=== PATIENT | female | born 1970 | race Caucasian/White ===

== ENCOUNTER → 2017-05-27 | Outpatient (CLI) | payer OTHER | END | disposition home or self-care (01) | LOC: SURG 09:54 | PROVIDERS: ATTEND Anesthesiology | DX: M47.816 Spondylosis without myelopathy or radiculopathy, lumbar region (principal); M51.36 Other intervertebral disc degeneration, lumbar region; I10 Essential (primary) hypertension; Z90.710 Acquired absence of both cervix and uterus | CPT/HCPCS: 99204 ==

== ENCOUNTER → 2017-07-29 | Outpatient (CLI) | payer OTHER | END | disposition home or self-care (01) | LOC: SURG 10:14 | PROVIDERS: ATTEND Anesthesiology | DX: M54.16 Radiculopathy, lumbar region (principal); M51.36 Other intervertebral disc degeneration, lumbar region; M47.816 Spondylosis without myelopathy or radiculopathy, lumbar region; Z90.710 Acquired absence of both cervix and uterus | CPT/HCPCS: 99214 ==

== ENCOUNTER → 2017-09-23 | Outpatient (CLI) | payer OTHER ==
[~2017-09-23] MED LIST: BUPIVACAINE MPF 0.25% 10 ML VIAL. ONE; LIDOCAINE 1% PF 30 ML VIAL. ONE
== END | disposition home or self-care (01) ==
LOC: SURG 09:43
PROVIDERS: ATTEND Anesthesiology
DX: M47.816 Spondylosis without myelopathy or radiculopathy, lumbar region (principal); M51.16 Intervertebral disc disorders with radiculopathy, lumbar region; Z72.89 Other problems related to lifestyle; Z90.710 Acquired absence of both cervix and uterus; Z88.5 Allergy status to narcotic agent; Z88.4 Allergy status to anesthetic agent
CPT/HCPCS: 64493; 64494; J2001; J3490

== ENCOUNTER → 2017-10-28 | Outpatient (CLI) | payer OTHER | END | disposition home or self-care (01) | LOC: SURG 09:37 | PROVIDERS: ATTEND Anesthesiology | DX: M47.816 Spondylosis without myelopathy or radiculopathy, lumbar region (principal); M54.16 Radiculopathy, lumbar region; M51.36 Other intervertebral disc degeneration, lumbar region; G89.4 Chronic pain syndrome; I10 Essential (primary) hypertension; Z88.5 Allergy status to narcotic agent; Z88.4 Allergy status to anesthetic agent; Z90.710 Acquired absence of both cervix and uterus | CPT/HCPCS: 99214 ==

== ENCOUNTER → 2017-11-25 | Day surgery (SDC) | payer OTHER ==
[~2017-11-25] MED LIST changes: -BUPIVACAINE MPF 0.25% 10 ML VIAL. ONE; +BUPIVACAINE MPF 0.5% 30 ML VIAL. ONE; +CETI10TA22 PO; +DEXAMETHASONE SOD PHOS 4 MG/ML VIAL ONE; +ESTR0.5T PO; -LIDOCAINE 1% PF 30 ML VIAL. ONE; +LIDOCAINE 2% MPF 200 MG/10 ML AMPUL. INJ ONE; +MIDAZOLAM HCL PF 2 MG/2 ML VIAL. ONE; +TIZA4TAB PO; +TRAM50TA PO; +VENL75CA PO
[2017-11-25 10:05] VITALS: BP 117/73
== END | disposition home or self-care (01) ==
LOC: SURG 08:16
PROVIDERS: ATTEND Anesthesiology
DX: M47.816 Spondylosis without myelopathy or radiculopathy, lumbar region (principal); Z72.89 Other problems related to lifestyle; Z90.710 Acquired absence of both cervix and uterus; Z98.890 Other specified postprocedural states; Z79.899 Other long term (current) drug therapy; Z88.5 Allergy status to narcotic agent; Z88.8 Allergy status to other drugs, medicaments and biological substances
CPT/HCPCS: 64635; 64636; J1100; J2250; J3010; J3490

== ENCOUNTER → 2017-12-16 | Day surgery (SDC) | payer OTHER ==
[~2017-12-16] MED LIST changes: +BUPIVACAINE MPF 0.25% 30 ML VIAL. ONE; -BUPIVACAINE MPF 0.5% 30 ML VIAL. ONE; +IV RINGERS SOLUTION,LACTATED 1,000 ML IV SCH; +LIDOCAINE 1% PF 30 ML VIAL. ONE; -LIDOCAINE 2% MPF 200 MG/10 ML AMPUL. INJ ONE
[2017-12-16 09:40] VITALS: BP 117/61
== END | disposition home or self-care (01) ==
LOC: SURG 07:22
PROVIDERS: ATTEND Anesthesiology
DX: M47.816 Spondylosis without myelopathy or radiculopathy, lumbar region (principal); Z72.89 Other problems related to lifestyle; Z90.710 Acquired absence of both cervix and uterus; Z88.5 Allergy status to narcotic agent; Z88.8 Allergy status to other drugs, medicaments and biological substances; Z79.899 Other long term (current) drug therapy; Z98.890 Other specified postprocedural states
CPT/HCPCS: 64635; 64636; J1100; J2001; J2250; J3010; J3490; J7120

== ENCOUNTER 2019-12-15 22:17 | Emergency (ER) | payer BC, OTHER ==
[~2019-12-15] VITALS: Ht 154.9 cm; Wt 83.4 kg
[~2019-12-15 22:17] MED LIST changes: -BUPIVACAINE MPF 0.25% 30 ML VIAL. ONE; -CETI10TA22 PO; +CETI10TA74 PO; -DEXAMETHASONE SOD PHOS 4 MG/ML VIAL ONE; -IV RINGERS SOLUTION,LACTATED 1,000 ML IV SCH; -LIDOCAINE 1% PF 30 ML VIAL. ONE; -MIDAZOLAM HCL PF 2 MG/2 ML VIAL. ONE; -TIZA4TAB PO; +TIZA4TAB2 PO
[2019-12-15] MEDS: DEXAMETHASONE 4 MG TABLET PO ONE (22:45)
[2019-12-15] MEDS ORDERED: ALBU2.5V8 IH (23:04)
--- NOTE | 2019-12-15 23:04 | PHYS DOC ---
Past History Past Medical History: Other Additional Past Medical Histor: chronic back pain Past Surgical History: , Hysterectomy Alcohol Use: Occasionally General Adult EDM: Chief Complaint: SHORTNESS OF BREATH HPI: HPI: Patient is a [age] year old [sex] who presents with [] Review of Systems: Review of Systems: Constitutional: Denies fever or chills Eyes: Denies redness or eye pain HENT: Denies nasal congestion or sore throat Respiratory: Denies cough or shortness of breath Cardiovascular: Denies chest pain or palpitations GI: Denies abdominal pain, nausea, or vomiting : Denies dysuria or hematuria Musculoskeletal: Denies back pain or joint pain Integument: Denies rash or skin lesions Neurologic: Denies headache, focal weakness or sensory changes Complete systems were reviewed and found to be within normal limits, except as documented in this note. Current Medications: Current Meds: Current Medications Medications (Trade) Dose Ordered Sig/Orlin Start Time Stop Time Status Last Admin Dose Admin Dexamethasone (Decadron) 10 mg 1X ONCE 12/15/19 22:45 12/15/19 22:47 DC Allergies: Allergies: Allergies Coded Allergies Type Severity Reaction Last Updated Verified diphenhydramine Allergy Unknown 11/25/17 Yes hydrocodone Allergy Unknown 11/25/17 Yes Physical Exam: PE: Constitutional: Well developed, well nourished, no acute distress, non-toxic appearance HENT: Normocephalic, atraumatic Eyes: PERRL, EOMI, conjunctiva normal, no discharge Neck: Normal range of motion, no tenderness, supple Lungs & Thorax: No respiratory distress, equal chest rise and fall Abdomen: Soft, no tenderness Skin: Warm, dry, no erythema, no rash Back: No tenderness, no CVA tenderness Extremities: No tenderness, ROM intact, no edema Neurologic: Alert and oriented X 3, normal motor function, normal sensory function, no focal deficits noted Psychologic: Affect normal, judgment normal Current Patient Data: Vital Signs: Vital Signs Date Time Temp Pulse Resp B/P (MAP) Pulse Ox O2 Delivery O2 Flow Rate FiO2 12/15/19 22:30 97.6 86 18 154/97 (116) 98 Room Air EKG: EKG: [] Radiology/Procedures: Radiology/Procedures: PROCEDURE: CHEST AP ONLY EXAM: CHEST ONE VIEW. HISTORY: Shortness of breath, COVID-19 positive. COMPARISON: None. FINDINGS: A frontal view of the chest is obtained. There are no confluent infiltrates. There is no pneumothorax or pleural effusion. The heart is not enlarged. IMPRESSION: 1. No confluent infiltrates. Electronically signed by: Jeffrey Asher MD (12/15/2019 11:04 PM) [facility] Course & Med Decision Making: Course & Med Decision Making Pertinent Imaging studies reviewed. (See chart for details) Patient presents with known COVID-19 infection with reported shortness of air. Reports tested positive Patient stable for discharge with outpatient follow-up with PCP. Discussed findings and plan with patient, who acknowledges understanding and agreement. COVID-19 CRITERIA: The patient was evaluated during the global COVID-19 pandemic, and that diagnosis was suspected/considered upon their initial presentation. Their evaluation, treatment and testing was consistent with current guidelines for patients who present with complaints or symptoms that may be related to COVID-19. Dragon Disclaimer: Dragon Disclaimer: This electronic medical record was generated, in whole or in part, using a voice recognition dictation system. Departure Departure: Impression: Primary Impression: COVID-19 Disposition: 01 DC HOME SELF CARE/HOMELESS Condition: STABLE Referrals: ASYA AGUILAR DO (PCP) Patient Instructions: Incentive Spirometer, Viral Syndrome Additional Instructions: You have been tested for or diagnosed with COVID-19. It is an infection caused by a new type of coronavirus. COVID-19 will cause cold-like or mild flu symptoms in most. It can cause more severe symptoms like problems breathing in some. There is no treatment for COVID-19. The body will clear the infection over time. Self-care will help to ease discomfort. Steps to Take: Self-Care Rest as needed. Healthy habits may help you feel better. Steps include: Choose healthy foods including fruits and vegetables. Drink water throughout the day. Get plenty of sleep each night. If you smoke, try to quit. It may ease breathing. Avoid alcohol. Keep Others Healthy The virus can spread to others. Droplets are released every time you sneeze or cough. The droplets can get into the mouth, nose, or eyes of people near you and lead to infection. To lower the chances of spreading COVID-19 to others: Stay at home until your doctor has said it is safe to leave. If you tested positive this will mean staying isolated until both of the following are true: At least 7 days have passed since the start of illness. You are free of fever for at least 72 hours without the use of medicine. During this time: - Avoid public areas, events, or transportation. Do not return to work or school until your doctor has said it is safe to do so. - Call ahead if you need to go to a medical center. Let them know you may have COVID-19. It will help them guide you where to go. They may also ask you to wear a facemask when you come to the office. - If you call for emergency medical services, let them know you may have COVID- 19. While at home: - Try to avoid close contact with others. Stay about 6 feet away. - If possible, spend most of your time in a separate room from others. - Use a face mask if you will be in close contact with others such as sharing a room or vehicle. - Have someone wipe down common surfaces in the home. Use household maintenance mechanic technician every day on areas like doorknobs, counters, or sinks. - Cough or sneeze into a tissue. Throw the tissue away right after use. If a tissue is not available, cough or sneeze into your elbow. - Wash your hands often. Wash them after sneezing or coughing. Use soap and water and wash for at least 20 seconds. Alcohol based hand high pressure cleaner can be used if soap and water is not available. - Do not prepare food for others. Avoid sharing personal items like forks, spoons, or toothbrushes. - Avoid close contact with pets while you are sick. There is no evidence of the virus passing to pets. This is a safety step until more is known about this virus. Isolation can be frustrating. Social interaction can help. Keep in touch with friends and family through phone and tech options. You can still interact with others in your home, just keep a safe distance of about 6 feet. Follow-up: Your doctors office will check in with you to see if there are any changes in your health. You may be asked to keep track of symptoms to share with them. They will also let you know when you are clear to be in public again. Problems to Look Out For: Contact your doctor if your recovery is not going as you expect. Get emergency care if you have problems such as: - Trouble breathing - Nonstop chest pain or pressure - Changes in awareness, confusion, or problems waking - Lips or face have bluish color - Worsening of symptoms If you think you have an emergency, call for emergency medical services right away. [facility] Script[facility] Albuterol Sulfate (PROAIR HFA INHALER) 8.5 Gm Hfa.aer.ad 2 PUFF IH PRN Q4-6HRS PRN for wheezing, #1 INHALER 0 Refills Prov: PACO GOLDBERG DO 12/15/19 COVID-19 Assessment COVID-19 Patient Risks: Age 65 or older: No Sign of co-morbidity: No Exp to person + for COVID: Yes Exp to PUI: No Travel from affected area: No Lower respiratory symptoms: Yes Fever: Yes Other: Yes (tested positive) PPE Use: Full PPE with N95 mask or PAPR: Yes PACO GOLDBERG DO Dec 15, 2019 23:04
--- NOTE | 2019-12-15 23:07 | RAD ---
EXAM: CHEST ONE VIEW. HISTORY: Shortness of breath, COVID-19 positive. COMPARISON: None. FINDINGS: A frontal view of the chest is obtained. There are no confluent infiltrates. There is no pneumothorax or pleural effusion. The heart is not enlarged. IMPRESSION: 1. No confluent infiltrates. Electronically signed by: Jeffrey Asher MD (12/15/2019 11:04 PM) [facility]
[2019-12-15 23:15] VITALS: BP 155/100
== END 2019-12-15 23:20 | disposition home or self-care (01) ==
LOC: ER 22:17
DX: U07.1 COVID-19 (principal); G89.29 Other chronic pain; Z88.8 Allergy status to other drugs, medicaments and biological substances; Z88.5 Allergy status to narcotic agent
CPT/HCPCS: 71045; 99283; J8540

== ENCOUNTER 2021-04-18 11:48 | Emergency (ER) | payer BC ==
[~2021-04-18] VITALS: Ht 154.9 cm; Wt 83.4 kg
[~2021-04-18 11:48] MED LIST changes: +ALBU2.5V8 IH; +TIZA-75 PO; -TIZA4TAB2 PO
[2021-04-18] MEDS ORDERED: ASPIRIN CHEWABLE 81 MG TABLET. PO ONE (12:45)
--- NOTE | 2021-04-18 12:45 | EKG ---
[address] [address] Test Date: 2021-04-18 Test Time: 12:03:05 Pat Name: ANABEL VIEYRA Department: Room: Gender: F Grade Tamper: : 1970 Requested By: GREGORY AMEZCUA Order Number: [id number] Reading MD: Renaldo Phelan Measurements Intervals [place] Rate: 79 P: 40 PA: 146 QRS: 76 QRSD: 90 T: 15 QT: 364 QTc: 423 Interpretive Statements SINUS RHYTHM QRS(T) CONTOUR ABNORMALITY CONSIDER ANTEROSEPTAL MYOCARDIAL DAMAGE POSSIBLY ABNORMAL ECG RI6.01 No previous ECG available for comparison Electronically Signed On 04-18-2021 19:54:11 JAVA LEAD ARCHITECT by Renaldo Phelan
--- NOTE | 2021-04-18 12:53 | RAD ---
EXAM: Chest, single view. HISTORY: Chest pain. COMPARISON: 12/15/2019 FINDINGS: A frontal view of the chest is obtained. There is no infiltrate, pleural effusion or pneumo thorax. The heart is normal in size. IMPRESSION: No acute pulmonary finding. Electronically signed by: Susan Petty MD (04/18/2021 12:50 PM) [id number]
[2021-04-18 12:59] LABS: BASO % 0 % (0-3); EOS # 0.1 x10^3/uL (0.0-0.7); EOS % 1 % (0-3); HEMATOCRIT 37.1 % (36.0-47.0); HEMOGLOBIN 12.8 g/dL (12.0-15.5); LYMPH # 1.4 x10^3/uL (1.0-4.8); LYMPH % 22 % (24-48); MEAN CORPUSCULAR HEMOGLOBIN 32 pg (25-35); MEAN CORPUSCULAR HGB CONC 35 g/dL (31-37); MEAN CORPUSCULAR VOLUME 93 fL (79-100); MONO # 0.4 x10^3/uL (0.0-1.1); MONO % 6 % (0-9); NEUT # 4.3 x10^3uL (1.8-7.7); NEUT % 70 % (31-73); PLATELET COUNT 190 x10^3/uL (140-400); RED BLOOD COUNT 3.97 x10^6/uL (3.50-5.40); WHITE BLOOD COUNT 6.1 x10^3/uL (4.0-11.0)
[2021-04-18 13:09] LABS: CALCIUM 8.8 mg/dL (8.5-10.1); CREATININE 0.7 mg/dL (0.6-1.0); GFR 88.2; POTASSIUM 4.3 mmol/L (3.5-5.1)
[2021-04-18 13:23] LABS: ALBUMIN 3.7 g/dL (3.4-5.0); TOTAL BILIRUBIN 0.4 mg/dL (0.2-1.0); TOTAL PROTEIN 7.5 g/dL (6.4-8.2)
--- NOTE | 2021-04-18 15:16 | PHYS DOC ---
Past History Past Medical History: Other Additional Past Medical Histor: chronic back pain (GREGORY AMEZCUA APRN) Past Surgical History: , Hysterectomy (GREGORY AMEZCUA APRN) Smoking: Non-smoker Additional Smoking Information: vape Alcohol Use: None Drug Use: None (GREGORY AMEZCUA APRN) General Adult EDM: Chief Complaint: UPPER EXTREMITY PAIN HPI: HPI: Patient is a 50-year-old female that presented today with left neck left shoulder left chest wall pain. Patient states the pain symptoms started 2 to 3 days ago and they have progressively gotten worse and gone down her left arm and she is presenting today for a rule out heart attack she is concerned with that. Patient states that she has a history of chronic pain in her back and neck area for which she sees a ornamental painter in [facility] for she says that she has had neck pain in the past but is never this extreme. Patient denies shortness of air, diaphoresis, cough, or fever. (GREGORY AMEZCUA APRN) Review of Systems: Review of Systems: Constitutional: Denies fever or chills Eyes: Denies change in visual acuity HENT: Denies nasal congestion or sore throat Respiratory: Denies cough or shortness of breath Cardiovascular: Left chest wall pain GI: Denies abdominal pain, nausea, vomiting, bloody stools or diarrhea : Denies dysuria Musculoskeletal: Left neck, left shoulder pain Integument: Denies rash Neurologic: Denies headache, focal weakness or sensory changes Endocrine: Denies polyuria or polydipsia Lymphatic: Denies swollen glands Psychiatric: Denies depression or anxiety (GREGORY AMEZCUA APRN) Current Medications: Current Meds: Current Medications Medications (Trade) Dose Ordered Sig/Orlin Start Time Stop Time Status Last Admin Dose Admin Aspirin (Aspirin Chewable) 324 mg 1X ONCE 04/18/21 12:45 04/18/21 12:46 DC 04/18/21 13:16 324 MG (GREGORY AMEZCUA MANAGER IMAGE) Allergies: Allergies: Allergies Coded Allergies Type Severity Reaction Last Updated Verified diphenhydramine Allergy Unknown 11/25/17 Yes hydrocodone Allergy Unknown 11/25/17 Yes (GREGORY AMEZCUA APRN) Physical Exam: PE: Constitutional: Well developed, well nourished, no acute distress, non-toxic teresita earance. [] HENT: Normocephalic, atraumatic, bilateral external ears normal, oropharynx moist, no oral exudates, nose normal. [] Eyes: PERRLA, EOMI, conjunctiva normal, no discharge. [] Neck: Normal range of motion, tenderness left lateral neck, supple, no stridor. [] Cardiovascular:Heart rate regular rhythm, no murmur [] Lungs & Thorax: Bilateral breath sounds clear to auscultation [] Abdomen: Bowel sounds normal, soft, no tenderness, no masses, no pulsatile masses. [] Skin: Warm, dry, no erythema, no rash. [] Back: No tenderness, no CVA tenderness. [] Extremities: No tenderness, no cyanosis, no clubbing, ROM intact, no edema. [] Neurologic: Alert and oriented X 3, normal motor function, normal sensory function, no focal deficits noted. [] Psychologic: Affect normal, judgement normal, mood normal. [] (GREGORY AMEZCUA APRN) Current Patient Data: Labs: Laboratory Tests Test 04/18/21 12:45 04/18/21 12:56 White Blood Count 6.1 x10^3/uL (4.0-11.0) Red Blood Count 3.97 x10^6/uL (3.50-5.40) Hemoglobin 12.8 g/dL (12.0-15.5) Hematocrit 37.1 % (36.0-47.0) Mean Corpuscular Volume 93 fL (79-100) Mean Corpuscular Hemoglobin 32 pg (25-35) Mean Corpuscular Hemoglobin Concent 35 g/dL (31-37) Red Cell Distribution Width 13.0 % (11.5-14.5) Platelet Count 190 x10^3/uL (140-400) Neutrophils (%) (Auto) 70 % (31-73) Lymphocytes (%) (Auto) 22 % (24-48) L Monocytes (%) (Auto) 6 % (0-9) Eosinophils (%) (Auto) 1 % (0-3) Basophils (%) (Auto) 0 % (0-3) Neutrophils # (Auto) 4.3 x10^3uL (1.8-7.7) Lymphocytes # (Auto) 1.4 x10^3/uL (1.0-4.8) Monocytes # (Auto) 0.4 x10^3/uL (0.0-1.1) Eosinophils # (Auto) 0.1 x10^3/uL (0.0-0.7) Basophils # (Auto) 0.0 x10^3/uL (0.0-0.2) Sodium Level 139 mmol/L (136-145) Potassium Level 4.3 mmol/L (3.5-5.1) Chloride Level 103 mmol/L (98-107) Carbon Dioxide Level 30 mmol/L (21-32) Anion Gap 6 (6-14) Blood Urea Nitrogen 12 mg/dL (7-20) Creatinine 0.7 mg/dL (0.6-1.0) Estimated GFR (Cockcroft-Gault) 88.2 BUN/Creatinine Ratio 17 (6-20) Glucose Level 110 mg/dL (70-99) H Calcium Level 8.8 mg/dL (8.5-10.1) Total Bilirubin 0.4 mg/dL (0.2-1.0) Aspartate Amino Transferase (AST) 17 U/L (15-37) Alanine Aminotransferase (ALT) 29 U/L (14-59) Alkaline Phosphatase 74 U/L (46-116) Troponin I High Sensitivity 4 ng/L (4-50) DN-Anq-X-Type Natriuretic Peptide 14 pg/mL (0-124) Total Protein 7.5 g/dL (6.4-8.2) Albumin 3.7 g/dL (3.4-5.0) Albumin/Globulin Ratio 1.0 (1.0-1.7) Prothrombin Time 9.6 SEC (9.4-11.4) Prothrombin Time INR 0.9 (0.9-1.1) Activated Partial Thromboplast Time 25 SEC (23-33) D-Dimer (Val) 0.45 mg/L (0.00-0.50) Vital Signs: Vital Signs Date Time Temp Pulse Resp B/P (MAP) Pulse Ox O2 Delivery O2 Flow Rate FiO2 04/18/21 15:27 72 16 113/69 (84) 97 Room Air 04/18/21 14:57 70 16 115/73 (87) 96 Room Air 04/18/21 13:57 71 16 125/70 (88) 97 Room Air 04/18/21 12:22 84 16 106/64 (78) 97 Room Air 04/18/21 12:04 98.2 88 16 132/80 (97) 98 Room Air Vital Signs Date Time Temp Pulse Resp B/P (MAP) Pulse Ox O2 Delivery O2 Flow Rate FiO2 04/18/21 13:57 71 16 125/70 (88) 97 Room Air 04/18/21 12:04 98.2 (GREGORY AMEZCUA APRN) EKG: EKG: EKG done at [address] Campos at 1207 shows sinus rhythm with no ectopy rate of 79 with a IA interval of 146 ms with a QTC of 423 ms no STEMI [] (GREGORY AMEZCUA APRN) Radiology/Procedures: Radiology/Procedures: REASON: chest pain PROCEDURE: PORTABLE CHEST 1V EXAM: Chest, single view. HISTORY: Chest pain. COMPARISON: 12/15/2019 FINDINGS: A frontal view of the chest is obtained. There is no infiltrate, pleural effusion or pneumothorax. The heart is normal in size. IMPRESSION: No acute pulmonary finding. Electronically signed by: Susan Petty MD (04/18/2021 12:50 PM) [id number] [] (GREGORY AMEZCUA APRN) Heart Score: C/O Chest Pain: Yes HEART Score for Chest Pain: HEART Score for Chest Pain Response (Comments) Value History Slighlty/Non-Suspicious 0 ECG Normal 0 Age >45 - < 65 1 Risk Factors No Risk Factors 0 Troponin < Normal Limit 0 Total 1 Risk Factors: Risk Factors: DM, Current or recent (<one month) smoker, HTN, HLP, family history of CAD, obesity. Risk Scores: Score 0 - 3: 2.5% MACE over next 6 weeks - Discharge Home Score 4 - 6: 20.3% MACE over next 6 weeks - Admit for Clinical Observation Score 7 - 10: 72.7% MACE over next 6 weeks - Early Invasive Strategies (GREGORY AMEZCUA APRN) Course & Med Decision Making: Course & Med Decision Making Pertinent Labs and Imaging studies reviewed. (See chart for details) 1500 reviewed radiological and laboratory results with patient did inform her there was no acute findings for heart attack or pulmonary emboli on her laboratory results and her chest x-ray was within normal limits. Due to the past medical history of neck pain I will refer her back to her ornamental painter for further management of her neck pain and left arm pain. Patient verbalized understanding of this and agreeable to the plan of care. (GREGORY AMEZCUA APRN) Dragon Disclaimer: Dragon Disclaimer: This electronic medical record was generated, in whole or in part, using a voice recognition dictation system. (GREGORY AMEZCUA APRN) Attending Co-Sign The patient was seen and interviewed as well as examined at the bedside. The chart was reviewed. The case was discussed. Agree with the plan of care. (DENNIS CAMPOS DO) Departure Departure: Impression: Primary Impression: Left arm pain Disposition: HOME / SELF CARE / HOMELESS Condition: STABLE Referrals: ASYA AGUILAR DO (PCP) Patient Instructions: Shoulder Joint Replacement, Care After Additional Instructions: Follow-up with your primary care physician or your pain management physician for further management of your left arm left shoulder pain Return to the emergency department if your chest pain is constant, you have increased shortness of breath or increased work of breathing, your lips or face become blue or abnormal colored. GREGORY AMEZCUA APRN Apr 18, 2021 15:16 DENNIS CAMPOS DO Apr 20, 2021 08:25
[2021-04-18 15:27] VITALS: BP 113/69
== END 2021-04-18 15:53 | disposition home or self-care (01) ==
LOC: ER 11:48
DX: M79.602 Pain in left arm (principal); M54.2 Cervicalgia; M25.512 Pain in left shoulder; R07.89 Other chest pain; G89.29 Other chronic pain; F17.200 Nicotine dependence, unspecified, uncomplicated; Z88.5 Allergy status to narcotic agent; Z88.8 Allergy status to other drugs, medicaments and biological substances
CPT/HCPCS: 36415; 71045; 80053; 83880; 84484; 85025; 85379; 85610; 85730; 93005; 99285

== ENCOUNTER 2021-05-20 23:53 | Emergency (ER) | payer BC ==
[~2021-05-20] VITALS: Ht 154.9 cm; Wt 74.4 kg
[2021-05-21] MEDS ORDERED: SEMA0.25 SQ (00:08)
[2021-05-21] MEDS ORDERED: METF-658 PO (00:08)
[2021-05-21] MEDS ORDERED: TRAZ-120 PO (00:12)
[2021-05-21] MEDS ORDERED: ATOR20TA58 PO (00:12)
[2021-05-21] MEDS ORDERED: BUPR150T24 PO (00:14)
[2021-05-21] MEDS ORDERED: FAMOTIDINE 20 MG TABLET PO ONE (00:30)
[2021-05-21] MEDS ORDERED: DEXAMETHASONE SOD PHOS 10 MG/ML VIAL. IM ONE (00:30)
[2021-05-21] MEDS ORDERED: hydrOXYzine HCL 25 MG TABLET PO ONE (00:30)
[2021-05-21] MEDS ORDERED: PRED20TA PO (00:33)
--- NOTE | 2021-05-21 00:33 | PHYS DOC ---
Past History Past Medical History: Anxiety, Diabetes, Other Additional Past Medical Histor: chronic back pain Past Surgical History: , Hysterectomy Smoking: Non-smoker, Quit Greater Than 1 Year Alcohol Use: None Drug Use: None General Adult EDM: Chief Complaint: ALLERGIC REACTION HPI: HPI: Patient is a 50 year old female who presents with sensation of throat and tongue swelling today. She states that three weeks ago she started three new medications, trazodone, bupropion and atorvastatin then soon afterward started having a sensation of something stuck in her throat. She denies any swelling, chest pain, shortness of breathe or difficulty swallowing at that time. Since then her symptoms have persisted with no relief. Tonight she started having the sensation that her throat and tongue were swelling. She denies any associated symptoms including shortness of breath, chest pain or facial swelling. She has had no other new environmental exposures. She is allergic to benadryl so she did not try any at home. Review of Systems: Review of Systems: Constitutional: Denies fever or chills Eyes: Denies redness or eye pain HENT: Denies nasal congestion or sore throat; reports tongue and throat swelling Respiratory: reports non productive cough or shortness of breath Cardiovascular: Denies chest pain or palpitations GI: Denies abdominal pain, nausea, or vomiting : Denies dysuria or hematuria Musculoskeletal: Denies back pain or joint pain Integument: Denies rash or skin lesions Neurologic: Denies headache, focal weakness or sensory changes Complete systems were reviewed and found to be within normal limits, except as documented in this note. Allergies: Allergies: Allergies Coded Allergies Type Severity Reaction Last Updated Verified diphenhydramine Allergy Unknown 11/25/17 Yes hydrocodone Allergy Unknown 11/25/17 Yes Physical Exam: PE: Constitutional: Well developed, well nourished, anxious, non-toxic appearance HENT: Normocephalic, atraumatic, uvula midline, normal oropharynx, uvula midline, no evidence of angioedema, handeling oral secretions without difficulty Eyes: Conjunctiva normal, no discharge, no periorbital swelling Neck: Normal range of motion, no tenderness, supple, normal thyroid to palpation Lungs & Thorax: No respiratory distress, equal chest rise and fall; no stridor CV: Normal heart rate and rhythm, less than 2 second capillary refill, +2 radial pulses bilaterally Skin: Warm, dry, no erythema, no rash Extremities: No tenderness, ROM intact, no edema Neurologic: Alert and oriented X 3, no focal deficits noted Psychologic: Affect anxious, judgment normal Heart Score: C/O Chest Pain: N/A Course & Med Decision Making: Course & Med Decision Making Patient presents with concern for possible allergic reaction. Patient also reports history of some sinus issues in the past. Difficult to discern whether environmental allergen versus true drug allergy. No clinical signs of angioedema appreciated. Symptomatic treatment provided with IM steroid. Patient advised to hold new medications and follow-up closely with her PCP regarding restarting versus changing medication. Patient stable for discharge with outpatient follow-up with PCP. Discussed findings and plan with patient, who acknowledges understanding and agreement. Eliu Disclaimer: Eliu Disclaimer: This electronic medical record was generated, in whole or in part, using a voice recognition dictation system. Departure Departure: Impression: Primary Impression: Throat irritation Disposition: HOME / SELF CARE / HOMELESS Condition: STABLE Referrals: ASYA AGUILAR DO (PCP) Patient Instructions: Drug Allergy, [id number] Additional Instructions: It is unclear if your symptoms are secondary to an actual drug allergy verses environmental allergy. Please hold your new medications and follow with your doctor regarding restarting vs switching to new medications. Please take steroids as directed. Scripts Prednisone (PREDNISONE) 20 Mg Tablet 2 TAB PO DAILY for Allergy for 4 Days, #8 TAB Start this medication tomorrow, Friday05/22/21 Prov: PACO GOLDBERG DO 05/21/21 PACO GOLDBERG DO May 21, 2021 00:33
[2021-05-21 01:25] VITALS: BP 128/80
== END 2021-05-21 01:30 | disposition home or self-care (01) ==
LOC: ER 23:53
DX: E11.9 Type 2 diabetes mellitus without complications (principal); J39.2 Other diseases of pharynx; G89.29 Other chronic pain; Z87.891 Personal history of nicotine dependence; Z88.5 Allergy status to narcotic agent; Z88.8 Allergy status to other drugs, medicaments and biological substances
CPT/HCPCS: 96372; 99283; J1100